=== PATIENT | male | born 1955 | race Caucasian/White ===

== ENCOUNTER 2023-11-14 16:40 | Emergency (ER) | payer OTHER, SELFPAY ==
[2023-11-14 16:48] VITALS: BP 183/70; PULSE 98; RESP 16; TEMP 37.6; O2SAT 94; BMI 29.8
--- NOTE | 2023-11-14 17:04 | W.ED.NAVMDI ---
HPI - Nausea/Vomiting/Diarrhea General: Chief complaint: Nausea/Vomiting/Diarrhea Stated complaint: weakness, abd pain Time Seen by Provider: 11/14/23 17:02 History of Present Illness: 68-year-old male patient comes in today with headache, and stomach discomfort. Patient reports illness since Saturday. Patient reports nausea without vomiting. Patient reports poor appetite, occasional cough, chills and fever. Patient appears mildly unwell but nontoxic. Patient has a history of hypertension, HIV, and chronic kidney disease. Patient had a appendectomy and gallbladder removal. Patient is also has a history of throat cancer. Associated nausea: Yes Associated symtoms: Reports malaise and nausea Review of Systems General: Reports: 10 or more systems reviewed and unremarkable except in HPI and below Const: Reports: fever(s), chills and malaise Resp: Reports: non-productive cough GI: Reports: nausea Physical Exam Const: COMMON NORMALS: alert HENMT: COMMON NORMALS: normocephalic HEAD & SCALP: normocephalic Neck/C-Spine: COMMON NORMALS: full ROM Chest: COMMONS NORMALS: normal inspection of the chest Resp: COMMON NORMALS: normal respiratory effort and clear to auscultation bilaterally AUSCULTATION: clear to auscultation bilaterally Cardio: COMMON NORMALS: regular rate and regular rhythm RATE: regular rate RHYTHM: regular rhythm GI: COMMON NORMALS: Soft to palpation and non-tender PALPATION: Yes Soft to palpation : COMMON NORMALS: Yes no CVA tenderness BLADDER/KIDNEY EXAM: Yes no CVA tenderness Back/Pelvis: COMMON NORMALS: no CVA tenderness and thoracic and lumbar spine normal to inspection Extremity: COMMON NORMALS: no pedal edema Neuro: SENSORIUM/ORIENTATION: Yes alert Skin: COMMON NORMALS: turgor normal GENERAL SKIN EXAM: turgor normal Course Vital Signs: Vital signs: Vital Signs Temperature 99.7 F H 11/14/23 16:48 Pulse Rate 89 11/14/23 18:51 Respiratory Rate 16 11/14/23 16:48 Blood Pressure 198/87 11/14/23 18:51 Pulse Oximetry 95 11/14/23 18:51 Oxygen Delivery Me thod Room Air 11/14/23 16:48 MDM - Nausea/Vomiting/Diarrhea Medical Decision Making 68-year-old male patient comes in today for complaints of feeling unwell, headache, nausea, poor appetite, chills and a fever. Patient appears mildly unwell but nontoxic. Lungs are clear to auscultation. Skin is warm and dry. Vital signs except for elevated blood pressure. Patient is post to be on blood pressure medication but did not take it today due to not feeling well. Differential diagnosis includes viral syndrome, pneumonia, gastroenteritis, constipation, upper respiratory infection. Medical Records Patient comes in for a acute illness that started about 2 days ago. Patient reports feeling poorly and nauseous. Patient reports poor oral intake. Skin is warm and dry. Lungs clear to auscultation. No edema is noted. Chest x-ray was normal. CBC showed a white count of 6000. CMP was normal. CRP was 53. Urinalysis was concentrated at 1.025. No abdominal pain was noted on palpation. Differential diagnosis includes but not limited to viral syndrome, influenza, COVID, urinary tract infection, pneumonia. COVID flu and strep were all negative. The patient probably has a viral syndrome. Patient felt better after 1 L of IV fluids and 4 mg of Zofran. Encourage patient to drink plenty of fluids and a prescription of Zofran was sent to the pharmacy. Patient reported understanding of care plan need for follow-up or return to the ER for worsening symptoms such as increasing shortness of breath, increasing pain or discomfort, or new concerns. Lab Data 11/14/23 17:21 11/14/23 17:21 Radiology Impressions Chest X-Ray 11/14/23 17:11 IMPRESSION: No acute findings. Laboratory Results WBC 6.66 10^3/uL (3.29-11.43) 11/14/23 17: RBC 4.72 10^6/uL (3.85-5.65) 11/14/23 17:21 Hgb 15.60 g/dL (11.27-16.99) 11/14/23 17:21 Hct 44.1 % (37-53) 11/14/23 17:21 MCV 93.4 fl (82-101) 11/14/23 17:21 MCH 33.1 pg (27-33) H 11/14/23 17: MCHC 35.4 g/dL (30-55) 11/14/23 17:21 RDW 13.0 % (12.1-15.1) 11/14/23 17:21 Plt Count 147 10^3/cmm (157-399) L 11/14/23 17:21 MPV 10.2 fL (7.4-10.4) 11/14/23 17:21 Neut % (Auto) 83.3 % 11/14/23 17:21 Lymph % (Auto) 6.6 % 11/14/23 17:21 [place] % (Auto) 9.5 % 11/14/23 17:21 Eos % (Auto) 0.0 % 11/14/23 17:21 Baso % (Auto) 0.3 % 11/14/23 17:21 Neut # (Auto) 5.55 10^3/uL (1.8-7.7) 11/14/23 17:21 Lymph # (Auto) 0.4 10^3/uL (0.8-4.8) L 11/14/23 17:21 Dixon # (Auto) 0.6 10^3/uL (0.2-0.9) 11/14/23 17:21 Eos # (Auto) 0.0 10^3/uL (0.0-0.8) 11/14/23 17:21 Baso # (Auto) 0.0 10^3/uL (0.0-0.1) 11/14/23 17:21 Nucleated RBC % (auto) 0 % 11/14/23 17:21 Nucleated RBCs # 0.0 /100WBC 11/14/23 17:21 Sodium 137 mmol/L (136-145) 11/14/23 17:21 Potassium 3.8 mmol/L (3.5-5.1) 11/14/23 17:21 Chloride 100 mmol/L (98-107) 11/14/23 17:21 Carbon Dioxide 26 mmol/L (22-29) 11/14/23 17:21 Anion Gap 14.8 (5-19) 11/14/23 17:21 BUN 17 mg/dL (8-23) 11/14/23 17:21 Creatinine 1.2 mg/dL (0.7-1.2) 11/14/23 17:21 GFR Calculation 60.2 mL/min (90-130) L 11/14/23 17:21 Glucose 139 mg/dL (65-115) H 11/14/23 17:21 Calculated Osmolality 288 mOsm/kg (285-295) 11/14/23 17:21 Lactic Acid 1.1 mmol/L (0.5-2.2) 11/14/23 17:21 Calcium 8.4 mg/dL (8.5-10.5) L 11/14/23 17:21 Total Bilirubin 2.3 mg/dL (0.15-1.2) H 11/14/23 17:21 AST 21 U/L (0-40) 11/14/23 17:21 ALT 15 U/L (0-41) 11/14/23 17:21 Alkaline Phosphatase 103 U/L (40-130) 11/14/23 17:21 C-Reactive Protein 53.1 mg/L (0.0-4.9) H 11/14/23 17:21 Total Protein 7.4 g/dL (6.6-8.7) 11/14/23 17:21 Albumin 4.3 g/dL (3.5-5.2) 11/14/23 17:21 Globulin 3.1 g/dL (1.3-4.6) 11/14/23 17:21 Urine Color Dark yellow (Yellow) 11/14/23 18:53 Urine Appearance Clear (CLEAR) 11/14/23 18:53 Urine pH 5 (5-7) 11/14/23 18:53 Ur Specific [place] 1.025 (1.005-1.030) 11/14/23 18:53 Urine Protein 1+ (Negative) H 11/14/23 18:53 Urine Glucose (UA) Norm (Normal) 11/14/23 18:53 Urine Ketones Negative (Negative) 11/14/23 18:53 Urine Blood Neg (Negative) 11/14/23 18:53 Urine Nitrate Negative (Negative) 11/14/23 18:53 Urine Bilirubin 1+ (Negative) H 11/14/23 18:53 Urine Urobilinogen 1 mg/dL (Negative) H 11/14/23 18:53 Ur Leukocyte Esterase Negative (Negative) 11/14/23 18:53 Urine RBC 0-4 /hpf (0-2) H 11/14/23 18:53 Urine WBC 0-4 /hpf (0-5) H 11/14/23 18:53 Ur Squamous Epith Cells None /hpf (0-5) 11/14/23 18:53 Amorphous Sediment Not Reportable 11/14/23 18:53 Urine Bacteria None /hpf (NONE) 11/14/23 18:53 Urine Mucus Trace /hpf 11/14/23 18:53 Influenza Type A Ag negative (Negative) 11/14/23 17:33 Influenza Type B Ag negative (Negative) 11/14/23 17:33 SARS-CoV-2 Ag (Rapid) negative (Negative) 11/14/23 17:33 Group A Strep Rapid Negative (Negative) 11/14/23 17:33 All radiology interpretation(s) finalized by discharge Discharge Plan Discharge Patient Disposition: Home Clinical Impression: Flu syndrome, Dehydration Condition: Stable Prescriptions: New ondansetron 4 mg tablet,disintegrating 4 mg PO Q8H PRN (Reason: nausea and vomiting) Qty: 7 0RF Discharge Orders: Discharge ED (Routine); Ordered 11/14/23 Ordered By: Cruz Mayfield Discharge Diet: Usual diet Discharge Activity: Increase activity as tolerated Patient Instructions: Viral Syndrome (ED) Activity Restrictions/Additional Instructions: Use acetaminophen and/or ibuprofen for aches pains and fever. Use ondansetron every 8 hours as needed for nausea. Drink frequent sips of fluids to stay hydrated. Follow-up with primary care for further instructions. Return to ED for new concerns. Coding Level of Care Code ED Network Security Consultant for Orquidea Nugent
--- NOTE | 2023-11-14 17:11 | XRR_ITS ---
PROCEDURE INFORMATION: Exam: XR Chest Exam date and time: 11/14/2023 5:43 PM Age: 68 years old Clinical indication: Cough TECHNIQUE: Imaging protocol: Radiologic exam of the chest. Views: 1 view. COMPARISON: No relevant prior studies available. FINDINGS: Lungs: Unremarkable. No consolidation. Pleural spaces: Unremarkable. No pleural effusion. No pneumothorax. Heart/Mediastinum: Mild cardiomegaly. Bones/joints: Unremarkable. XR/XR chest 1V portable [id number] IMPRESSION: No acute findings.
[2023-11-14 17:36] LABS: Basophils % 0.3 %; Hematocrit 44.1 % (37-53); Lymphocytes # 0.4 10^3/uL (0.8-4.8); Lymphocytes % 6.6 %; Mean Corpuscular HGB Conc 35.4 g/dL (30-55); Mean Corpuscular Hemoglobin 33.1 pg (27-33); Mean Corpuscular Volume 93.4 fl (82-101); Mean Platelet Volume 10.2 fL (7.4-10.4); Monocytes # 0.6 10^3/uL (0.2-0.9); Monocytes % 9.5 %; Neutrophils # 5.55 10^3/uL (1.8-7.7); Neutrophils % 83.3 %; Nucleated Red Blood Cells % 0 %; Platelet Count 147 10^3/cmm (157-399); Red Blood Count 4.72 10^6/uL (3.85-5.65); White Blood Count 6.66 10^3/uL (3.29-11.43)
[2023-11-14] MEDS: sodium chloride 0.9% 1,000 ML 999 ML IV (17:37)
[2023-11-14] MEDS: ondansetron 2 mg/ML SDV 2 mL 4 MG IVP (17:39)
[2023-11-14 17:52] LABS: Alanine Aminotransferase 15 U/L (0-41); Albumin Level 4.3 g/dL (3.5-5.2); Alkaline Phosphatase 103 U/L (40-130); Anion Gap 14.8 (5-19); Aspartate Amino Transferase 21 U/L (0-40); Blood Urea Nitrogen 17 mg/dL (8-23); C Reactive Protein 53.1 mg/L (0.0-4.9); Calcium 8.4 mg/dL (8.5-10.5); Carbon Dioxide 26 mmol/L (22-29); Chloride 100 mmol/L (98-107); Creatinine Clr Calc Pharmacy 72.0633; Globulin 3.1 g/dL (1.3-4.6); Glomerular Filtration Rate 60.2 mL/min (90-130); Glucose 139 mg/dL (65-115); Osmolality Calculated 288 mOsm/kg (285-295); Potassium 3.8 mmol/L (3.5-5.1); Sodium 137 mmol/L (136-145); Total Bilirubin 2.3 mg/dL (0.15-1.2); Total Protein 7.4 g/dL (6.6-8.7)
[2023-11-14 17:53] LABS: Lactic Sepsis W/Reflex 1.1 mmol/L (0.5-2.2)
[2023-11-14 18:18] LABS: Rapid Strep A Test Negative (Negative)
[2023-11-14 18:26] LABS: Influenza A by IFA negative (Negative); Influenza B by IFA negative (Negative); SARS Covid-2 Antigen negative (Negative)
[2023-11-14 18:51] VITALS: BP 198/87; PULSE 89; O2SAT 95
[2023-11-14 19:04] LABS: Add Urine Microscopic? YES; Bilirubin Urine 1+ (Negative); Blood Urine Neg (Negative); Glucose Urine UA Norm (Normal); Ketones Urine Negative (Negative); Leukocyte Esterase Urine Negative (Negative); Nitrate Urine Negative (Negative); Protein Urine 1+ (Negative); Specific Gravity, Urine 1.025 (1.005-1.030); Urine Appearance Clear (CLEAR); Urine Color Dark Yellow (Yellow); Urobilinogen Urine 1 mg/dL (Negative); pH Urine 5 (5-7)
[2023-11-14 19:10] LABS: Add Urine Culture? No; Mucus Urine TRACE /hpf; RBC Urine 0-4 /hpf (0-2); WBC Urine 0-4 /hpf (0-5)
[2023-11-14 19:32] VITALS: BP 170/83; PULSE 89; RESP 16; O2SAT 94
== END 2023-11-14 19:33 | disposition home or self-care (01) ==
PROVIDERS: Emergency Provider Nurse Practitioner Family
DX: J11.1 Influenza due to unidentified influenza virus with other respiratory manifestations (principal); E86.0 Dehydration; Z11.52 Encounter for screening for COVID-19
CPT/HCPCS: 36415; 71045; 80053; 81001; 83605; 85025; 86140; 87040; 87081; 87426; 87804; 87880; 96361; 96374; 99284; J2405; J7030

== ENCOUNTER 2024-07-20 16:02 | Observation (INO) | payer OTHER, SELFPAY ==
[2024-07-20] VITALS (8 sets, daily range): BP systolic 124–178; BP diastolic 80–96; PULSE 63–80; RESP 16–20; TEMP 36.6; O2SAT 92–96; BMI 29.8
--- NOTE | 2024-07-20 16:22 | CTR_ITS ---
PROCEDURE INFORMATION: Exam: CT Head Without Contrast Exam date and time: 07/20/2024 4:40 PM Age: 69 years old Clinical indication: Weakness, extremity; Left TECHNIQUE: Imaging protocol: Computed tomography of the head without contrast. Radiation optimization: All CT scans at this facility use at least one of these dose optimization techniques: automated exposure control; mA and/or kV adjustment per patient size (includes targeted exams where dose is matched to clinical indication); or iterative reconstruction. COMPARISON: No relevant prior studies available. RADIATION DOSE METRICS: Total DLP (mGy-cm): 1045.38 FINDINGS: Brain: No evidence of intra-axial or extra-axial hemorrhage. No mass effect or midline shift. There is an approximately 1 cm focus of hypoattenuation in the right perirolandic region, which appears centered in the right postcentral gyrus concerning for acute-subacute infarct (for example, image 40 of series 7). Basilar cisterns are patent. Cerebral ventricles: No hydrocephalus. Paranasal sinuses: The visualized paranasal sinuses are well aerated. Mastoid air cells: The visualized mastoids and middle ears are clear. Bones: Calvarium is intact. No evidence of acute fracture. Soft tissues: No gross soft tissue abnormality. CT/CT head wo con* [id number] IMPRESSION: 1. Findings suspicious for acute-subacute infarct in the right perirolandic region. Correlation with MRI is recommended. The findings were verbally communicated by telephone with Dr. ESCUDERO at 5:08 PM PROCESSING SPEC on 07/20/2024.
--- NOTE | 2024-07-20 16:22 | XRR_ITS ---
PROCEDURE INFORMATION: Exam: XR Chest Exam date and time: 07/20/2024 4:29 PM Age: 69 years old Clinical indication: Other: Weakness TECHNIQUE: Imaging protocol: Radiologic exam of the chest. Views: 1 view. COMPARISON: CR XR chest 1V portable [id number] 11/14/2023 5:43 PM FINDINGS: Lungs: No focal consolidation. Left basilar hazy opacities compatible with atelectasis or developing infection in the proper clinical setting. Pleural spaces: No evidence of pneumothorax. No evidence of pleural effusion. Heart/Mediastinum: Cardiomediastinal silhouette is within normal limits. Bones/joints: No evidence of acute osseous abnormality. XR/XR chest 1V portable [id number] IMPRESSION: 1. Left basilar hazy opacities compatible with atelectasis or developing infection in the proper clinical setting.
--- NOTE | 2024-07-20 16:24 | ECG_ITS ---
[facility] 2024[facility]20 Pat Name: Jin Hutton Department: Room: Gender: Male Welder Boilermaker: : 1955 Requested By: Regina Wade Order Number: [id number] Tracie MD: Alcon Corado M.D. Measurements Intervals Kress Rate: 71 P: -35 PA: 139 QRS: 38 QRSD: 85 T: 76 QT: 370 QTc: 403 Interpretive Statements SINUS RHYTHM No previous ECG available for comparison Electronically Signed On 07-20-2024 16:49:02 TRAFFIC ENGINEERING DIRECTOR by Alcon Corado M.D. [email or web address]
--- NOTE | 2024-07-20 16:27 | ED_ITS ---
HPI - Neuro Symptoms/Deficit 2 General: Chief Complaint: Neuro Symptoms/Deficit Stated Complaint: strokelikesymptoms (2xdays ago) Time Seen by Provider: 07/20/24 16:08 Source: patient Mode of arrival: ambulatory Limitations: no limitations History of Present Illness: 69-year-old male states that on Saturday h e started having some numbness he states to his left side of his face states he had some numbness as well to his left arm and legs. He states that he also had some dizziness difficulty walking was started on Saturday as well. He states that is resolved states he still having some numbness down his left arm he is able to ambulate he has no slurred speech. Associated symptoms: Reports headache(s); Deny chest pain, nausea or vomiting Related Data Previous Rx's Medication Instructions Recorded ondansetron 4 mg disintegrating 4 mg PO Q8H PRN nausea and 11/14/23 tablet vomiting #7 tabs Allergies Allergy/AdvReac Type Severity Reaction Status Date / Time No Known Allergies Allergy Verified 07/20/24 16:18 Review of Systems 2 Const: Denies: fever(s), chills, body aches or change in appetite ENMT: Denies: throat pain or dental pain Card: Denies: chest pain Resp: Denies: dyspnea GI: Denies: abdominal pain, nausea, vomiting or diarrhea Musc: Denies: neck pain or back pain Skin/Breast: Denies: rash Neuro: Reports: headache(s) NIH stroke score 2 NIHSS: Level Of Consciousness - 1a: 0 Level Of Consciousness Questions - 1b: Both Correct Level Of Consciousness Commands - 1c: Both Correct Best Gaze - 2: Normal Visual [place] - 3: No Visual Loss Facial Palsy - 4: N ormal Motor Arm Right - 5: No Drift Motor Arm Left - 5: No Drift Motor Leg Right - 6: No Drift Motor Leg Left - 6: No Drift Limb Ataxia - 7: A bsent Sensory - 8: Mild To Moderate Loss Best Language - 9: No Aphasia Dysarthia - 10: Normal Extinction And Inattention - 11: 0 Score: Total Score: 1 Physical Exam 2 Const: COMMON NORMALS: no acute distress, patient oriented x3 and healthy appearing HENMT: COMMON NORMALS: normocephalic and atraumatic HEAD & SCALP: n ormocephalic and atraumatic Eye: COMMON NORMALS: Equal, round and reactive pupils present and EOMs intact bilaterally PUPIL: Yes Equal, round and reactive pupils present Neck/C-Spine: COMMON NORMALS: full ROM and supple Chest: COMMONS NORMALS: normal inspection of the chest Resp: COMMON NORMALS: normal respiratory effort, No retractions, No use of accessory muscles and clear to auscultation bilaterally AUSCULTATION: clear to auscultation bilaterally Cardio: COMMON NORMALS: regular rate, regular rhythm and No murmurs present (Cardio) RATE: regular rate RHYTHM: regular rhythm Extremity: COMMON NORMALS: normal to inspection and full ROM Neuro: COMMON NORMALS: patient oriented x3, moves all extremities and no focal motor deficits CRANIAL NERVES: Yes CN normal except as noted SPEECH: s peech normal GAIT: Yes Normal gait present MOTOR EXAM: 5/5 motor strength present throughout Psych: COMMON NORMALS: mental status grossly normal, Normal thought process present and cooperative THOUGHT PROCESS: Normal thought process present Skin: COMMON NORMALS: no rashes or lesions noted and no wounds GENERAL SKIN EXAM: no rashes or lesions noted Course 2 Vital Signs: Vital signs: Vital Signs Temperature 97.9 F 07/20/24 16:14 Pulse Rate 65 07/20/24 17:26 Respiratory Rate 20 H 07/20/24 17:26 Blood Pressure 160/91 07/20/24 17:26 Pulse Oximetry 95 07/20/24 17:26 Oxygen Delivery Me thod Room Air 07/20/24 17:26 MDM - Neuro Symptoms/Deficit Medical Decision Making Patient presents here with numbness down his left arm along with some dizziness that started on Saturday head CT shows a possible stroke. Patient's symptoms began Saturday he is no candidate for lytics or thrombectomy as his onset has been greater than 24 hours. I have him an NIH of 1 here as the symptoms have improved I spoke to the hospitalist will admit at this time for further workup Medical Records I reviewed the patient's medical records. Lab Data I reviewed the patient's lab results. 07/20/24 16:29 07/20/24 16:29 Radiology Impressions Chest X-Ray 07/20/24 16:22 IMPRESSION: 1. Left basilar hazy opacities compatible with atelectasis or developing infection in the proper clinical setting. Head CT 07/20/24 16:22 IMPRESSION: 1. Findings suspicious for acute-subacute infarct in the right perirolandic region. Correlation with MRI is recommended. The findings were verbally communicated by telephone with Dr. ESCUDERO at 5:08 PM FOLDER MACHINE OPERATOR on 07/20/2024. Laboratory Results WBC 5.58 10^3/uL (3.29-11.43) 07/20/24 16: RBC 4.95 10^6/uL (3.85-5.65) 07/20/24 16:29 Hgb 16.30 g/dL (11.27-16.99) 07/20/24 16:29 Hct 46.6 % (37-53) 07/20/24 16: MCV 94.1 fl (82-101) 07/20/24 16: MCH 32.9 pg (27-33) 07/20/24 16: MCHC 35.0 g/dL (30-55) 07/20/24 16: RDW 13.6 % (12.1-15.1) 07/20/24 16:29 Plt Count 171 10^3/cmm (157-399) 07/20/24 16: MPV 10.1 fL (7.4-10.4) 07/20/24 16: Neut % (Auto) 67.6 % 07/20/24 16: Lymph % (Auto) 20.4 % 07/20/24 16:29 [place] % (Auto) 9.0 % 07/20/24 16: Eos % (Auto) 2.2 % 07/20/24 16:29 Baso % (Auto) 0.4 % 07/20/24 16:29 Neut # (Auto) 3.78 10^3/uL (1.8-7.7) 07/20/24 16:29 Lymph # (Auto) 1.1 10^3/uL (0.8-4.8) 07/20/24 16:29 [place] # (Auto) 0.5 10^3/uL (0.2-0.9) 07/20/24 16:29 Eos # (Auto) 0.1 10^3/uL (0.0-0.8) 07/20/24 16:29 Baso # (Auto) 0.0 10^3/uL (0.0-0.1) 07/20/24 16:29 Nucleated RBC % (auto) 0 % 07/20/24 16:29 Nucleated RBCs # 0.0 /100WBC 07/20/24 16:29 Sodium 138 mmol/L (136-145) 07/20/24 16:29 Potassium 4.1 mmol/L (3.5-5.1) 07/20/24 16:29 Chloride 101 mmol/L (98-107) 07/20/24 16:29 Carbon Dioxide 26 mmol/L (22-29) 07/20/24 16:29 Anion Gap 15.1 (5-19) 07/20/24 16:29 BUN 17 mg/dL (8-23) 07/20/24 16:29 Creatinine 1.2 mg/dL (0.7-1.2) 07/20/24 16:29 GFR Calculation 60.0 mL/min (90-130) L 07/20/24 16:29 Glucose 103 mg/dL (65-115) 07/20/24 16:29 Calculated Osmolality 288 mOsm/kg (285-295) 07/20/24 16:29 Calcium 9.7 mg/dL (8.5-10.5) 07/20/24 16:29 Magnesium 2.4 mg/dL (1.7-2.3) H 07/20/24 16:29 Total Bilirubin 2.6 mg/dL (0.15-1.2) H 07/20/24 16:29 AST 27 U/L (0-40) 07/20/24 16:29 ALT 22 U/L (0-41) 07/20/24 16:29 Alkaline Phosphatase 79 U/L (40-130) 07/20/24 16:29 Total Protein 7.9 g/dL (6.6-8.7) 07/20/24 16:29 Albumin 4.8 g/dL (3.5-5.2) 07/20/24 16:29 Globulin 3.1 g/dL (1.3-4.6) 07/20/24 16:29 All radiology interpretation(s) finalized by discharge EKG Data EKG 1: I personally reviewed and interpreted this EKG as follows: EKG interpretation date: 07/20/24 EKG interpretation time: 16:34 Interpretation: nsr hr [address] or t wave abnormalities qr 85 qtc 392 Discharge Plan Discharge Patient Disposition: Admitted As Inpatient Clinical Impression: Cerebrovascular accident Condition: Stable Coding Level of Care Code ED Advanced Seal Delivery System for Orquidea Nugent
[2024-07-20 16:35] LABS: Basophils % 0.4 %; Eosinophils # 0.1 10^3/uL (0.0-0.8); Eosinophils % 2.2 %; Hematocrit 46.6 % (37-53); Lymphocytes # 1.1 10^3/uL (0.8-4.8); Lymphocytes % 20.4 %; Mean Corpuscular Hemoglobin 32.9 pg (27-33); Mean Corpuscular Volume 94.1 fl (82-101); Mean Platelet Volume 10.1 fL (7.4-10.4); Monocytes # 0.5 10^3/uL (0.2-0.9); Neutrophils # 3.78 10^3/uL (1.8-7.7); Neutrophils % 67.6 %; Nucleated Red Blood Cells % 0 %; Platelet Count 171 10^3/cmm (157-399); Red Blood Count 4.95 10^6/uL (3.85-5.65); Red Cell Distribution Width 13.6 % (12.1-15.1); White Blood Count 5.58 10^3/uL (3.29-11.43)
--- NOTE | 2024-07-20 16:40 | PC.PHAR ---
[facility] 07/20/24 4:40pm
[2024-07-20 16:52] LABS: Alanine Aminotransferase 22 U/L (0-41); Albumin Level 4.8 g/dL (3.5-5.2); Alkaline Phosphatase 79 U/L (40-130); Anion Gap 15.1 (5-19); Aspartate Amino Transferase 27 U/L (0-40); Blood Urea Nitrogen 17 mg/dL (8-23); Calcium 9.7 mg/dL (8.5-10.5); Carbon Dioxide 26 mmol/L (22-29); Chloride 101 mmol/L (98-107); Creatinine Clr Calc Pharmacy 71.0625; Globulin 3.1 g/dL (1.3-4.6); Glucose 103 mg/dL (65-115); Magnesium 2.4 mg/dL (1.7-2.3); Osmolality Calculated 288 mOsm/kg (285-295); Potassium 4.1 mmol/L (3.5-5.1); Sodium 138 mmol/L (136-145); Total Bilirubin 2.6 mg/dL (0.15-1.2); Total Protein 7.9 g/dL (6.6-8.7)
--- NOTE | 2024-07-20 17:02 | CTR_ITS ---
PROCEDURE INFORMATION: Exam: CT Abdomen And Pelvis With Contrast Exam date and time: 07/20/2024 5:41 PM Age: 69 years old Clinical indication: Jaundiced TECHNIQUE: Imaging protocol: Computed tomography of the abdomen and pelvis with contrast. Radiation optimization: All CT scans at this facility use at least one of these dose optimization techniques: automated exposure control; mA and/or kV adjustment per patient size (includes targeted exams where dose is matched to clinical indication); or iterative reconstruction. Contrast material: OMNI 350; Contrast volume: 100 ml; Contrast route: INTRAVENOUS (IV); COMPARISON: CR XR chest 1V portable [id number] 07/20/2024 4:29 PM RADIATION DOSE METRICS: Total DLP (mGy-cm): 847.12 FINDINGS: Lungs: Subsegmental bibasilar atelectasis. The visualized lung bases are otherwise grossly clear. Diaphragm: No evidence of diaphragmatic defect. Liver: Hepatic steatosis. No evidence of focal hepatic lesion. Gallbladder and biliary ducts: Scribe GB tube Pancreas: Unremarkable. Spleen: Unremarkable. Adrenal glands: Unremarkable. Kidneys and ureters: No renal parenchymal abnormality. No hydronephrosis or ureteral stone. Stomach and bowel: Colonic diverticulosis without evidence of acute diverticulitis. No bowel obstruction or perienteric inflammatory changes. Appendix: The appendix is not visualized, however there are no findings to suggest appendicitis. Intraperitoneal space: No evidence of free air or fluid collection. Vasculature: No aneurysmal dilatation or dissection of the abdominal aorta. The celiac trunk, SMA and [place] are grossly patent. No evidence of IVC thrombus. The portal vein, SMV and splenic veins are grossly patent. Lymph nodes: No adenopathy. Urinary bladder: Grossly unremarkable. Reproductive: Enlarged prostate measuring 5 cm. Consider correlation with serum laboratory findings and outpatient urologic evaluation. Bones/joints: No evidence of acute fracture or aggressive osseous lesion. Moderate-severe osteoarthritis of both hips. Soft tissues: No evidence of fluid collection or hematoma in the superficial soft tissues. Postsurgical changes of the lower abdominal wall compatible with prior hernia repair. CT/CT abdomen pelvis w con* [id number] IMPRESSION: 1. No evidence of acute abnormality in the abdomen or pelvis.
[2024-07-20] MEDS: aspirin 81 mg Chew Tablet 324 MG PO (17:26)
[2024-07-20] MEDS: iohexol 350 mg/mL 500 mL Btl (per mL) IV (17:51)
[2024-07-20] MEDS: clopidogrel 75 mg Tablet PO (18:35)
[2024-07-20 18:41] LABS: Chol HDL Ratio 3.89 mg/dL (1.0-5.00); Cholesterol 210 mg/dL (0-200); HDL Cholesterol 54 mg/dL (60-100); LDL Cholesterol Calculated 132 mg/dL (50-129); Thyroid Stimulating Hormone 2.96 uIU/mL (0.27-4.20); Triglycerides 122 mg/dL (0-150); VLDL Cholestrol Calculation 24 mg/dL (0-30); Vitamin B12 885 pg/mL (232-1245)
--- NOTE | 2024-07-20 19:08 | P.HP_ITS ---
Providers/Chief Complaint 2 Admitting Physician: Wanda Tellez MD Primary Care Provider: Nelia Brown MD Chief Complaint: stroke like symptoms (2xdays ago) History of Present Illness Jin Hutton is a 69 year old male with chronic history of throat cancer in remission, chronic hoarseness of voice, HIV on Biktary, follows up in [place], hypertension takes losartan and amlodipine, endorsing chronic history of abnormal bilirubin, history of cholecystectomy, coming in with chief complaint of left-sided numbness and weakness. Patient is stating that he was watching television on Saturday with his around 7 PM when he start experiencing dizziness associated with numbness of the left side of his face and arm, he he asked his to bring him aspirin, he took couple doses, he felt a bit relieved went to bed, next day he was experiencing similar symptoms all day, took another dose of couple of aspirins, because of persistent symptoms his asked him to get evaluated on Saturday, patient is stating that he has not noticed any slurring of speech word-finding difficulty. Stating that he has chronic left hand injury and sometimes feel numb that is why he did not pay much attention. His hoarseness of voice is related to throat cancer currently in remission. NIH score 1 for slight weakness of left arm, awake and alert hypertensive currently on room air CT head consistent with subacute CVA CT abdomen pelvis unremarkable Bilirubin noted Requested hepatitis panel B12 level TSH along echo bubble study and had MRI Patient is stating that right now he is only feeling numbness around left neck area otherwise he feels he is back to his baseline Review of Systems 2 Const: Denies: fever(s) Eyes: Denies: change in vision ENMT: Denies: throat pain Card: Denies: chest pain Resp: Denies: dyspnea Musc: Reports: muscle weakness Neuro: Reports: weakness in extremities and dizziness Medications/Allergies Home Medications Medication Instructions Recorded Confirmed Last Taken Type ondansetron 4 mg disintegrating 4 mg PO Q8H PRN nausea and 11/14/23 Unknown Rx tablet vomiting #7 tabs Allergies Allergy/AdvReac Type Severity Reaction Status Date / Time No Known Allergies Allergy Verified 07/20/24 16:18 PFSH Acute 2 PFSH: Medical History Hypertension HIV (human immunodeficiency virus infection) Surgical History History of appendectomy Status post cholecystectomy Vitals/I&O/Wt Last Vital Signs Temp 97.9 F 07/20/24 16:14 Pulse 67 07/20/24 18:44 Resp 17 07/20/24 18:44 BP 178/86 07/20/24 18:44 Pulse Ox 94 07/20/24 18:44 O2 Del Method Room Air 07/20/24 18:44 Weight last 48 hrs Weight 99.79 kg Physical Exam 2 Narrative: Patient is awake and alert NIH 1 for mild left-sided arm weakness GCS 15 No slurring of speech Hoarseness of voice is chronic Awake and alert AO x 4 S1, S2 Hypertensive Currently on room air Euvolemic Data 07/20/24 16:29 07/20/24 16:29 A&P Assessment and plan (1) Cerebrovascular accident: Plan Subacute CVA Had MRI requested in the morning Check on telemetry for the abnormal rhythm Check B12, TSH, hemoglobin A1c and lipid panel PT OT ST I would allow patient to have cardiac diet for now I do not appreciate any slurring of speech however he has chronic hoarseness of voice related to throat cancer in the past, Currently in remission I would also request CTA head and neck Add atorvastatin 80 along aspirin and Plavix Permissive hypertension If blood pressure goes above 200/120 can use IV antibiotic regimen as needed basis Patient takes losartan 50 mg and amlodipine 5 mg at home, it can be optimized for better blood pressure control at the time of discharge Anticipating discharge within 48 hours DVT prophylaxis: Lovenox Cardiac diet Patient is a non-smoker, does not drink alcohol History of HIV: Continue Biktarvy Patient endorsing chronic history of abnormal bilirubin, requested hepatitis panel, patient stating that since childhood with stress he always gets jaundice, he is not sure if he has a diagnosis of Gilbert syndrome? CT abdomen pelvis unremarkable, patient is stating that he has had cholecystectomy in the past Attestations 2 Medical Necessity Statement*: Anticipating discharge within 48 hours Diagnoses Cerebrovascular accident I63.9
--- NOTE | 2024-07-20 19:08 | USCV_ITS ---
Jin Hutton Age: 69 Gender: M : 1955 Exam Date: 07/20/2024 19:56 Ordering Phys: Analia Blanc MD Technologist: HOLLY Exam Location: [facility] [place] Indication: left hemiparesia BP: 160 / 91 HR: 63 Rhythm: Sinus Technical Quality: Adequate MEASUREMENTS (Male / Female) Normal Values 2D ECHO LV Diastolic Diameter PLAX 3.9 cm 4.2 - 5.9 / 3.9 - 5.3 cm IVS Diastolic Thickness 1.9 cm 0.6 - 1.0 / 0.6 - 0.9 cm IVS Systolic Thickness 2.5 cm LVPW Diastolic Thickness 1.6 cm 0.6 - 1.0 / 0.6 - 0.9 cm LVPW Systolic Thickness 1.6 cm LVOT Diameter 2.1 cm LV Ejection Fraction 2D Teich 58.6 % LV Ejection Fraction MOD 4C 60.1 % LV Ejection Fraction MOD 2C 66.7 % LV Ejection Fraction 2C AL 67.6 % LA Diameter 4.1 cm Aorta at Sinotubular Diameter 2.6 cm IVC Diameter 2.3 cm M-MODE LA Ao Ratio MM 1.3 AV Cusp Separation MM 1.9 cm DOPPLER AV Peak Velocity 108.0 cm/s LVOT Peak Velocity 82.0 cm/s AV Area Cont Eq vti 3.3 cm squared AV Area Cont Eq pk 2.7 cm squared MV Peak Velocity 93.0 cm/s MV Area PHT 4.1 cm squared Mitral E to A Ratio 0.8 TV Peak E Velocity 37.0 cm/s PV Peak Velocity 130.0 cm/s FINDINGS Left Ventricle Normal LV size with slightly diminished ejection fraction of 50%.mild left ventricular hypertrophy. Grade I/IV diastolic dysfunction (abnormal relaxation filling pattern), normal to mildly elevated filling pressures. Right Ventricle The right ventricle is normal in size and function. Right Atrium The right atrium is normal in size. Left Atrium Mildly increased left atrial size. Mitral Valve Trace mitral valve regurgitation. Aortic Valve The leaflets appears to be thickened. Morphology could not be delineated well. Tricuspid Valve No gross abnormalities noted Pulmonic Valve Trace pulmonary valve regurgitation. Pericardium Normal pericardium without effusion. Aorta Normal ascending aorta dimension. IVC The inferior vena cava appears normal. CONCLUSIONS Normal LV size with slightly diminished ejection fraction of 50%.mild left ventricular hypertrophy. Grade I/IV diastolic dysfunction (abnormal relaxation filling pattern), normal to mildly elevated filling . Mildly increased left atrial size. Trace mitral valve regurgitation. The aortic leaflets appears to be thickened. Morphology could not be delineated well. Trace pulmonary valve regurgitation. There is no pericardial effusion. There are no intracardiac masses. No similar previous studies are available for comparison Dr Darlene Arvizu MD [facility] (Electronically Signed) Final Date: 21 July 2024 01:21 S
[2024-07-20] MEDS: lisinopril 5 mg Tablet PO (19:48)
[2024-07-20 20:00] LABS: Vitamin B12 845 pg/mL (232-1245)
[2024-07-20 20:54] LABS: Hepatitis A Antibody IgM Non-Reactive (Nonreactive); Hepatitis B Core AB, Total Non-Reactive (Nonreactive); Hepatitis B Surface AB 205.4 (11.5-1000); Hepatitis B Surface Antigen Non-Reactive (Nonreactive); Hepatitis C Virus Antibody Non-Reactive (Nonreactive)
[2024-07-20] MEDS: enoxaparin 40 mg/0.4 mL Syringe SUBCUT (21:03)
[2024-07-20] MEDS: atorvastatin 40 mg Tablet 80 MG PO (21:03)
[2024-07-20 21:15] LABS: Estmated Average Glucose 126
[2024-07-21] VITALS: BP 145/66; PULSE 65; RESP 17; TEMP 36.8; O2SAT 93
[2024-07-21 04:00] VITALS: BP 143/77; PULSE 71; RESP 18; TEMP 36.8; O2SAT 94
[2024-07-21 04:57] LABS: Basophils % 0.4 %; Eosinophils # 0.1 10^3/uL (0.0-0.8); Eosinophils % 2.2 %; Hematocrit 44.9 % (37-53); Lymphocytes # 1.1 10^3/uL (0.8-4.8); Lymphocytes % 19.9 %; Mean Corpuscular HGB Conc 35.2 g/dL (30-55); Mean Corpuscular Hemoglobin 32.1 pg (27-33); Mean Corpuscular Volume 91.3 fl (82-101); Mean Platelet Volume 10.4 fL (7.4-10.4); Monocytes # 0.5 10^3/uL (0.2-0.9); Monocytes % 8.7 %; Neutrophils # 3.69 10^3/uL (1.8-7.7); Neutrophils % 68.4 %; Nucleated Red Blood Cells % 0 %; Platelet Count 162 10^3/cmm (157-399); Red Blood Count 4.92 10^6/uL (3.85-5.65); Red Cell Distribution Width 13.2 % (12.1-15.1); White Blood Count 5.39 10^3/uL (3.29-11.43)
[2024-07-21 05:31] LABS: Alanine Aminotransferase 21 U/L (0-41); Albumin Level 4.2 g/dL (3.5-5.2); Alkaline Phosphatase 72 U/L (40-130); Anion Gap 14.7 (5-19); Aspartate Amino Transferase 23 U/L (0-40); Blood Urea Nitrogen 16 mg/dL (8-23); Calcium 8.9 mg/dL (8.5-10.5); Carbon Dioxide 26 mmol/L (22-29); Chloride 105 mmol/L (98-107); Creatinine Clr Calc Pharmacy 71.0776; Globulin 2.6 g/dL (1.3-4.6); Glucose 107 mg/dL (65-115); Magnesium 2.2 mg/dL (1.7-2.3); Osmolality Calculated 296 mOsm/kg (285-295); Potassium 3.7 mmol/L (3.5-5.1); Sodium 142 mmol/L (136-145); Total Bilirubin 3.3 mg/dL (0.15-1.2); Total Protein 6.8 g/dL (6.6-8.7)
--- NOTE | 2024-07-21 08:00 | CTR_ITS ---
PROCEDURE INFORMATION: Exam: CTA Head With Contrast, Arteriography Exam date and time: 07/21/2024 9:01 AM Age: 69 years old Clinical indication: Condition or disease; Other: CVA; Patient HX: HX of throat cancer TECHNIQUE: Imaging protocol: Computed tomographic angiography of the head with contrast. Exam focused on the arteries. 3D rendering (Not supervised by radiologist): MIP and/or 3D reconstructed images were created by the technologist. Radiation optimization: All CT scans at this facility use at least one of these dose optimization techniques: automated exposure control; mA and/or kV adjustment per patient size (includes targeted exams where dose is matched to clinical indication); or iterative reconstruction. Contrast material: OMNI 350; Contrast volume: 100 ml; Contrast route: INTRAVENOUS (IV); COMPARISON: MR head wo con* [id number] 07/21/2024 7:39 AM RADIATION DOSE METRICS: Total DLP (mGy-cm): 1035.57 FINDINGS: ANTERIOR CIRCULATION: Right internal carotid artery: Intracranial segment is patent with no significant stenosis. No aneurysm. Right middle cerebral artery: No occlusion or significant stenosis. No aneurysm. Right anterior cerebral artery: No occlusion or significant stenosis. No aneurysm. Left internal carotid artery: Intracranial segment is patent with no significant stenosis. No aneurysm. Left middle cerebral artery: No occlusion or significant stenosis. No aneurysm. Left anterior cerebral artery: No occlusion or significant stenosis. No aneurysm. POSTERIOR CIRCULATION: Right vertebral artery: No occlusion or significant stenosis. No aneurysm. Left vertebral artery: No occlusion or significant stenosis. No aneurysm. Basilar artery: No occlusion or significant stenosis. No aneurysm. Right posterior cerebral artery: No occlusion or significant stenosis. No aneurysm. Left posterior cerebral artery: No occlusion or significant stenosis. No aneurysm. Brain: No definite mass, mass effect, or midline shift. The small acute/subacute infarcts seen by MR diffusion-weighted imaging are not visible by CT. Cerebral ventricles: No ventriculomegaly. Paranasal sinuses: Mucous retention cysts in the right maxillary sinus. Bones/joints: Unremarkable. No acute fracture. Soft tissues: Unremarkable. PROCEDURE INFORMATION: Exam: CTA Neck With Contrast Exam date and time: 07/21/2024 9:01 AM Age: 69 years old Clinical indication: Condition or disease; Other: CVA; Patient HX: HX of throat cancer TECHNIQUE: Imaging protocol: Computed tomographic angiography of the neck with contrast. Exam focused on the cervical segments of the vasculature. 3D rendering (Not supervised by radiologist): MIP and/or 3D reconstructed images were created by the technologist. Radiation optimization: All CT scans at this facility use at least one of these dose optimization techniques: automated exposure control; mA and/or kV adjustment per patient size (includes targeted exams where dose is matched to clinical indication); or iterative reconstruction. Contrast material: OMNI 350; Contrast volume: 100 ml; Contrast route: INTRAVENOUS (IV); COMPARISON: MR head tejal verma* [id number] 07/21/2024 7:39 AM RADIATION DOSE METRICS: Total DLP (mGy-cm): 1035.57 FINDINGS: Right common carotid artery: No stenosis. No dissection or occlusion. Right internal carotid artery: No stenosis of the extracranial segment. No dissection or occlusion. Right external carotid artery: No occlusion or stenosis of the origin. Left common carotid artery: No stenosis. No dissection or occlusion. Left internal carotid artery: No stenosis of the extracranial segment. No dissection or occlusion. Left external carotid artery: No occlusion or stenosis of the origin. Right vertebral artery: No stenosis. No dissection or occlusion. Left vertebral artery: No stenosis. No dissection or occlusion. Soft tissues: Normal. No significant soft tissue swelling. Bones/joints: No acute fracture. CT/CT angio headneck* [id number] IMPRESSION: No hemodynamically significant stenosis or large vessel occlusion visualized in the arteries of the head. IMPRESSION: No hemodynamically significant stenosis or occlusion. REFERENCES: NASCET CRITERIA. The degree of stenosis in the cervical segment of the internal carotid artery is based on NASCET criteria. Normal is no stenosis. Mild is less than 50% stenosis. Moderate is 50-69% stenosis. Severe is 70% to 99% stenosis. Total occlusion is no detectable patent lumen.
[2024-07-21 08:53] VITALS: BP 143/77
[2024-07-21] MEDS: losartan 50 mg Tablet PO (08:53)
[2024-07-21] MEDS: clopidogrel 75 mg Tablet PO (08:53)
[2024-07-21] MEDS: aspirin 81 mg EC Tablet PO (08:53)
[2024-07-21] MEDS: amlodipine 10 mg Tablet PO (08:53)
[2024-07-21] MEDS: iohexol 350 mg/mL 500 mL Btl (per mL) IV (09:05)
--- NOTE | 2024-07-21 11:47 | P.DS_ITS ---
Discharge Providers Date of Admission: 07/20/24 18:40 Date of Discharge: July 21, 2024 Attending Provider at Admission: Wanda Tellez MD Attending Provider at Discharge: Wanda Tellez MD Primary Care Provider: Nelia Brown MD Diagnoses at Discharge Discharge Diagnosis (1) Cerebrovascular accident: Status: Acute Reason for Visit Reason for Visit: stroke like symptoms (2xdays ago) Discharge Data Studies Completed and Pending Completed Studies During Hospitalization Category Date Time Status CT abdomen pelvis w con* [id number] Stat Cat Scan 07/20/24 17:[address] head wo con* [id number] Stat Cat Scan 07/20/24 16:22 Completed CTA head neck [CT angio headneck* [id number]] Routine Cat Scan 07/21/24 08:00 Completed XR chest 1V portable [id number] Stat Exams 07/20/24 16:22 Completed MR head wo con* [id number] Routine MRI 07/21/24 18:01 Completed CV. echo w/w bubble cont [id number] Routine Ultrasound 07/20/24 19:08 Completed Radiology Impressions Chest X-Ray 07/20/24 16:22 IMPRESSION: 1. Left basilar hazy opacities compatible with atelectasis or developing infection in the proper clinical setting. Head CT 07/20/24 16:22 IMPRESSION: 1. Findings suspicious for acute-subacute infarct in the right perirolandic region. Correlation with MRI is recommended. The findings were verbally communicated by telephone with Dr. ESCUDERO at 5:08 PM [employer] on 07/20/2024. Abdomen/Pelvis CT 07/20/24 17:02 IMPRESSION: 1. No evidence of acute abnormality in the abdomen or pelvis. Head/Neck CTA 07/21/24 08:00 IMPRESSION: No hemodynamically significant stenosis or large vessel occlusion visualized in the arteries of the head. IMPRESSION: No hemodynamically significant stenosis or occlusion. REFERENCES: NASCET CRITERIA. The degree of stenosis in the cervical segment of the internal carotid artery is based on NASCET criteria. Normal is no stenosis. Mild is less than 50% stenosis. Moderate is 50-69% stenosis. Severe is 70% to 99% stenosis. Total occlusion is no detectable patent lumen. Head MRI 07/21/24 18:01 IMPRESSION: 1. Small amount of patchy acute ischemia involving the RIGHT frontoparietal junction at the central sulcus. Few additional tiny punctate foci in the RIGHT posterior lara radiata and RIGHT frontal lobe compatible with acute ischemia. 2. No mass effect or midline shift. Tiny amount of edema at the RIGHT frontal parietal infarct. 3. Mild small vessel changes. Moderate parenchymal volume loss. Notified Wanda Tellez MD at 07/21/2024 9:36 AM. Laboratory Results WBC 5.39 10^3/uL (3.29-11.43) 07/21/24 04:29 RBC 4.92 10^6/uL (3.85-5.65) 07/21/24 04:29 Hgb 15.80 g/dL (11.27-16.99) 07/21/24 04:29 Hct 44.9 % (37-53) 07/21/24 04:29 MCV 91.3 fl (82-101) 07/21/24 04:29 MCH 32.1 pg (27-33) 07/21/24 04:29 MCHC 35.2 g/dL (30-55) 07/21/24 04:29 RDW 13.2 % (12.1-15.1) 07/21/24 04:29 Plt Count 162 10^3/cmm (157-399) 07/21/24 04:29 MPV 10.4 fL (7.4-10.4) 07/21/24 04:29 Neut % (Auto) 68.4 % 07/21/24 04:29 Lymph % (Auto) 19.9 % 07/21/24 04:29 Benton % (Auto) 8.7 % 07/21/24 04:29 Eos % (Auto) 2.2 % 07/21/24 04:29 Baso % (Auto) 0.4 % 07/21/24 04:29 Neut # (Auto) 3.69 10^3/uL (1.8-7.7) 07/21/24 04:29 Lymph # (Auto) 1.1 10^3/uL (0.8-4.8) 07/21/24 04:29 Benton # (Auto) 0.5 10^3/uL (0.2-0.9) 07/21/24 04:29 Eos # (Auto) 0.1 10^3/uL (0.0-0.8) 07/21/24 04:29 Baso # (Auto) 0.0 10^3/uL (0.0-0.1) 07/21/24 04:29 Nucleated RBC % (auto) 0 % 07/21/24 04:29 Nucleated RBCs # 0.0 /100WBC 07/21/24 04:29 Sodium 142 mmol/L (136-145) 07/21/24 04:29 Potassium 3.7 mmol/L (3.5-5.1) 07/21/24 04:29 Chloride 105 mmol/L (98-107) 07/21/24 04:29 Carbon Dioxide 26 mmol/L (22-29) 07/21/24 04:29 Anion Gap 14.7 (5-19) 07/21/24 04:29 BUN 16 mg/dL (8-23) 07/21/24 04:29 Creatinine 1.2 mg/dL (0.7-1.2) 07/21/24 04:29 GFR Calculation 60.0 mL/min (90-130) L 07/21/24 04:29 Glucose 107 mg/dL (65-115) 07/21/24 04:29 Estimat Average Glucose 126 07/20/24 16:29 Hemoglobin A1c 6.0 % (4.0-6.0) 07/20/24 16:29 Calculated Osmolality 296 mOsm/kg (285-295) H 07/21/24 04:29 Calcium 8.9 mg/dL (8.5-10.5) 07/21/24 04:29 Magnesium 2.2 mg/dL (1.7-2.3) 07/21/24 04:29 Total Bilirubin 3.3 mg/dL (0.15-1.2) H 07/21/24 04:29 AST 23 U/L (0-40) 07/21/24 04:29 ALT 21 U/L (0-41) 07/21/24 04:29 Alkaline Phosphatase 72 U/L (40-130) 07/21/24 04:29 Total Protein 6.8 g/dL (6.6-8.7) 07/21/24 04:29 Albumin 4.2 g/dL (3.5-5.2) 07/21/24 04:29 Globulin 2.6 g/dL (1.3-4.6) 07/21/24 04:29 Triglycerides 122 mg/dL (0-150) 07/20/24 16:29 Cholesterol 210 mg/dL (0-200) H 07/20/24 16:29 LDL Cholesterol, Calc 132 mg/dL (50-129) H 07/20/24 16:29 Total VLDL Cholesterol 24 mg/dL (0-30) 07/20/24 16:29 HDL Cholesterol 54 mg/dL (60-100) L 07/20/24 16:29 Cholesterol/HDL Ratio 3.89 mg/dL (1.0-5.00) 07/20/24 16:29 Vitamin B12 845 pg/mL (232-1245) 07/20/24 16:29 Vitamin B12 885 pg/mL (232-1245) 07/20/24 16:29 TSH 2.96 uIU/mL (0.27-4.20) 07/20/24 16:29 Hepatitis A IgM Ab Non-reactive (Nonreactive) 07/20/24 19:38 Hep Bs Antigen Non-reactive (Nonreactive) 07/20/24 19:38 Hep Bs Antibody 205.4 (11.5-1000) 07/20/24 19:38 Hep B Core Total Ab Non-reactive (Nonreactive) 07/20/24 19:38 Hepatitis C Antibody Non-reactive (Nonreactive) 07/20/24 19:38 Vitals Last Vital Signs Temp 98.3 F 07/21/24 04:00 Pulse 71 07/21/24 04:00 Resp 18 07/21/24 04:00 BP 143/77 07/21/24 08:53 Pulse Ox 94 07/21/24 04:00 O2 Del Method Room Air 07/21/24 04:00 Discharge Plan Discharge Patient Disposition: Home Condition: Stable Prescriptions: New amlodipine 10 mg Tablet 10 mg PO DAILY Qty: 30 0RF aspirin 81 mg Tablet,Delayed Release (Dr/Ec) 81 mg PO DAILY Qty: 30 0RF atorvastatin 40 mg Tablet 80 mg PO BEDTIME Qty: 30 0RF clopidogrel 75 mg Tablet 75 mg PO DAILY Qty: 30 0RF losartan 50 mg Tablet 50 mg PO DAILY Qty: 30 0RF Continued amlodipine 5 mg tablet 5 mg PO DAILY Biktarvy 50-200-25 mg tablet 1 tab PO DAILY Discontinued rosuvastatin 10 mg tablet 10 mg PO DAILY losartan-hydrochlorothiazide 100-12.5 mg tablet 1 tab PO DAILY Discharge Orders: Discharge Order (Routine); Ordered 07/21/24 Ordered By: Wanda Tellez Other Ambulatory Orders: DME: Shower Chair (Order) Location: None Selected Ordered By: Analia Blanc MCT/Event Monitor 21 Days (Routine) Timeframe: 1 Day Facility: [facility] - Location: Radiology Ordered By: Wanda Tellez Referrals: Nelia Brown MD [Primary Care Provider] - 4-7 days Vickie Mccauley MD [Physician] - 1 week Discharge Diet: Cardiac Discharge Activity: As per PT/OT instructions Patient Instructions: Opioid Safety Coding Level of Care Code Acute Code for [facility] Fwd Diagnoses Cerebrovascular accident I63.9
--- NOTE | 2024-07-21 11:56 | P.DS_ITS ---
Discharge Providers Date of Admission: 07/20/24 18:40 Date of Discharge: July 21, 2024 Attending Provider at Admission: Wanda Tellez MD Attending Provider at Discharge: Wanda Tellez MD Primary Care Provider: Nelia Brown MD Diagnoses at Discharge Discharge Diagnosis (1) Cerebrovascular accident: Status: Acute Reason for Visit Reason for Visit: stroke like symptoms (2xdays ago) Hospital Course Hospital Course Jin Hutton is a 69 year old male with chronic history of throat cancer in remission, chronic hoarseness of voice, HIV on Biktarvy, follows up in [facility], hypertension takes losartan and amlodipine, endorsing chronic history of abnormal bilirubin, history of cholecystectomy, coming in with chief complaint of left-sided numbness and weakness. Patient is stating that he was watching television on Saturday with his around 7 PM when he start experiencing dizziness associated with numbness of the left side of his face and arm, he he asked his to bring him aspirin, he took couple doses, he felt a bit relieved went to bed, next day he was experiencing similar symptoms all day, took another dose of couple of aspirins, because of persistent symptoms his asked him to get evaluated on Saturday, patient is stating that he has not noticed any slurring of speech word-finding difficulty. Stating that he has chronic left hand injury and sometimes feel numb that is why he did not pay much attention. His hoarseness of voice is related to throat cancer currently in remission. Patient had a CT head done which showed a subacute CVA. He does have a history of HIV. Biktarvy to be continued at this time. ? MRI brain did confirm a stroke 1. Small amount of patchy acute ischemia involving the RIGHT frontoparietal junction at the central sulcus. Few additional tiny punctate foci in the RIGHT posterior lara radiata and RIGHT frontal lobe compatible with acute ischemia. 2. No mass effect or midline shift. Tiny amount of edema at the RIGHT frontal parietal infarct. 3. Mild small vessel changes. Moderate parenchymal volume loss. - Patient was placed on amlodipine aspirin atorvastatin Plavix losartan for 30 days. Patient to follow-up with neurology at discharge. Shower chair was o rdered for patient as per his request. 21-day event monitor was set up. Echo reviewed. Physical Exam Narrative: Patient is awake and alert NIH 1 for mild left-sided arm weakness GCS 15 No slurring of speech Hoarseness of voice is chronic Awake and alert AO x 4 S1, S2 Hypertensive Currently on room air Euvolemic Discharge Data Studies Completed and Pending Completed Studies During Hospitalization Category Date Time Status CT abdomen pelvis w con* [id number] Stat Cat Scan 07/20/24 17:[address] head wo con* [id number] Stat Cat Scan 07/20/24 16:22 Completed CTA head neck [CT angio headneck* [id number]] Routine Cat Scan 07/21/24 08:00 Completed XR chest 1V portable [id number] Stat Exams 07/20/24 16:22 Completed MR head wo con* [id number] Routine MRI 07/21/24 18:01 Completed CV. echo w/w bubble cont [id number] Routine Ultrasound 07/20/24 19:08 Completed Radiology Impressions Chest X-Ray 07/20/24 16:22 IMPRESSION: 1. Left basilar hazy opacities compatible with atelectasis or developing infection in the proper clinical setting. Head CT 07/20/24 16:22 IMPRESSION: 1. Findings suspicious for acute-subacute infarct in the right perirolandic region. Correlation with MRI is recommended. The findings were verbally communicated by telephone with Dr. ESCUDERO at 5:08 PM [facility]NER on 07/20/2024. Abdomen/Pelvis CT 07/20/24 17:02 IMPRESSION: 1. No evidence of acute abnormality in the abdomen or pelvis. Head/Neck CTA 07/21/24 08:00 IMPRESSION: No hemodynamically significant stenosis or large vessel occlusion visualized in the arteries of the head. IMPRESSION: No hemodynamically significant stenosis or occlusion. REFERENCES: NASCET CRITERIA. The degree of stenosis in the cervical segment of the internal carotid artery is based on NASCET criteria. Normal is no stenosis. Mild is less than 50% stenosis. Moderate is 50-69% stenosis. Severe is 70% to 99% stenosis. Total occlusion is no detectable patent lumen. Head MRI 07/21/24 18:01 IMPRESSION: 1. Small amount of patchy acute ischemia involving the RIGHT frontoparietal junction at the central sulcus. Few additional tiny punctate foci in the RIGHT posterior lara radiata and RIGHT frontal lobe compatible with acute ischemia. 2. No mass effect or midline shift. Tiny amount of edema at the RIGHT frontal parietal infarct. 3. Mild small vessel changes. Moderate parenchymal volume loss. Notified Wanda Tellez MD at 07/21/2024 9:36 AM. Laboratory Results WBC 5.39 10^3/uL (3.29-11.43) 07/21/24 04:29 RBC 4.92 10^6/uL (3.85-5.65) 07/21/24 04:29 Hgb 15.80 g/dL (11.27-16.99) 07/21/24 04:29 Hct 44.9 % (37-53) 07/21/24 04:29 MCV 91.3 fl (82-101) 07/21/24 04:29 MCH 32.1 pg (27-33) 07/21/24 04:29 MCHC 35.2 g/dL (30-55) 07/21/24 04:29 RDW 13.2 % (12.1-15.1) 07/21/24 04:29 Plt Count 162 10^3/cmm (157-399) 07/21/24 04:29 MPV 10.4 fL (7.4-10.4) 07/21/24 04:29 Neut % (Auto) 68.4 % 07/21/24 04:29 Lymph % (Auto) 19.9 % 07/21/24 04:29 [place] % (Auto) 8.7 % 07/21/24 04:29 Eos % (Auto) 2.2 % 07/21/24 04:29 Baso % (Auto) 0.4 % 07/21/24 04:29 Neut # (Auto) 3.69 10^3/uL (1.8-7.7) 07/21/24 04:29 Lymph # (Auto) 1.1 10^3/uL (0.8-4.8) 07/21/24 04:29 [place] # (Auto) 0.5 10^3/uL (0.2-0.9) 07/21/24 04:29 Eos # (Auto) 0.1 10^3/uL (0.0-0.8) 07/21/24 04:29 Baso # (Auto) 0.0 10^3/uL (0.0-0.1) 07/21/24 04:29 Nucleated RBC % (auto) 0 % 07/21/24 04:29 Nucleated RBCs # 0.0 /100WBC 07/21/24 04:29 Sodium 142 mmol/L (136-145) 07/21/24 04:29 Potassium 3.7 mmol/L (3.5-5.1) 07/21/24 04:29 Chloride 105 mmol/L (98-107) 07/21/24 04:29 Carbon Dioxide 26 mmol/L (22-29) 07/21/24 04:29 Anion Gap 14.7 (5-19) 07/21/24 04:29 BUN 16 mg/dL (8-23) 07/21/24 04:29 Creatinine 1.2 mg/dL (0.7-1.2) 07/21/24 04:29 GFR Calculation 60.0 mL/min (90-130) L 07/21/24 04:29 Glucose 107 mg/dL (65-115) 07/21/24 04:29 Estimat Average Glucose 126 07/20/24 16:29 Hemoglobin A1c 6.0 % (4.0-6.0) 07/20/24 16:29 Calculated Osmolality 296 mOsm/kg (285-295) H 07/21/24 04:29 Calcium 8.9 mg/dL (8.5-10.5) 07/21/24 04:29 Magnesium 2.2 mg/dL (1.7-2.3) 07/21/24 04:29 Total Bilirubin 3.3 mg/dL (0.15-1.2) H 07/21/24 04:29 AST 23 U/L (0-40) 07/21/24 04:29 ALT 21 U/L (0-41) 07/21/24 04:29 Alkaline Phosphatase 72 U/L (40-130) 07/21/24 04:29 Total Protein 6.8 g/dL (6.6-8.7) 07/21/24 04:29 Albumin 4.2 g/dL (3.5-5.2) 07/21/24 04:29 Globulin 2.6 g/dL (1.3-4.6) 07/21/24 04:29 Triglycerides 122 mg/dL (0-150) 07/20/24 16:29 Cholesterol 210 mg/dL (0-200) H 07/20/24 16:29 LDL Cholesterol, Calc 132 mg/dL (50-129) H 07/20/24 16:29 Total VLDL Cholesterol 24 mg/dL (0-30) 07/20/24 16:29 HDL Cholesterol 54 mg/dL (60-100) L 07/20/24 16:29 Cholesterol/HDL Ratio 3.89 mg/dL (1.0-5.00) 07/20/24 16:29 Vitamin B12 845 pg/mL (232-1245) 07/20/24 16:29 Vitamin B12 885 pg/mL (232-1245) 07/20/24 16:29 TSH 2.96 uIU/mL (0.27-4.20) 07/20/24 16:29 Hepatitis A IgM Ab Non-reactive (Nonreactive) 07/20/24 19:38 Hep Bs Antigen Non-reactive (Nonreactive) 07/20/24 19:38 Hep Bs Antibody 205.4 (11.5-1000) 07/20/24 19:38 Hep B Core Total Ab Non-reactive (Nonreactive) 07/20/24 19:38 Hepatitis C Antibody Non-reactive (Nonreactive) 07/20/24 19:38 Vitals Last Vital Signs Temp 98.3 F 07/21/24 04:00 Pulse 71 07/21/24 04:00 Resp 18 07/21/24 04:00 BP 143/77 07/21/24 08:53 Pulse Ox 94 07/21/24 04:00 O2 Del Method Room Air 07/21/24 04:00 Discharge Plan Discharge Patient Disposition: Home Condition: Stable Prescriptions: New losartan 50 mg Tablet 50 mg PO DAILY Qty: 30 0RF atorvastatin 40 mg Tablet 80 mg PO BEDTIME Qty: 30 0RF clopidogrel 75 mg Tablet 75 mg PO DAILY Qty: 30 0RF aspirin 81 mg Tablet,Delayed Release (Dr/Ec) 81 mg PO DAILY Qty: 30 0RF amlodipine 10 mg Tablet 10 mg PO DAILY Qty: 30 0RF Continued amlodipine 5 mg tablet 5 mg PO DAILY Biktarvy 50-200-25 mg tablet 1 tab PO DAILY Discontinued rosuvastatin 10 mg tablet 10 mg PO DAILY losartan-hydrochlorothiazide 100-12.5 mg tablet 1 tab PO DAILY Discharge Orders: Discharge Order (Routine); Ordered 07/21/24 Ordered By: Wanda Tellez Other Ambulatory Orders: DME: Shower Chair (Order) Location: None Selected Ordered By: Analia Blanc MCT/Event Monitor 21 Days (Routine) Timeframe: 1 Day Facility: [facility] - Location: Radiology Ordered By: Wanda Tellez Referrals: Nelia Brown MD [Primary Care Provider] - 4-7 days (We have notified your physician's clinic of the need for a follow-up appointment to be scheduled. If you have not heard from them within the next 2 business days, please call them directly. ) Vickie Mccauley MD [Physician] - 1 week (We have notified your physician's clinic of the need for a follow-up appointment to be scheduled. If you have not heard from them within the next 2 business days, please call them directly. ) Discharge Diet: Cardiac Discharge Activity: As per PT/OT instructions Patient Instructions: Aspirin (By mouth), Amlodipine (By mouth), Losartan (By mouth), Atorvastatin (By mouth), Clopidogrel (By mouth), Ischemic Stroke (DC), Self Care Measures After a Stroke (DC), Opioid Safety, Stroke Stoplight Discharge Attestations Time Spent in Discharge Care*: greater than 30 min Quality Metrics Clinical Quality Measures [ No reported AMI, CVA or VTE this stay] Coding Level of Care Code Acute Code for [facility] Fwd Diagnoses Cerebrovascular accident I63.9
[2024-07-21 12:00] VITALS: BP 139/79; PULSE 71; RESP 15; TEMP 36.9; O2SAT 97
[2024-07-21 14:24] VITALS: BP 139/79; PULSE 71; RESP 15; TEMP 36.9; O2SAT 97
--- NOTE | 2024-07-21 18:01 | MR_ITS ---
WS: [id number] MRI HEAD WITHOUT CONTRAST TECHNIQUE: Sagittal T1, T2 axial, T2 axial FLAIR, axial and coronal T1 images, axial susceptibility w eighted imaging, axial diffusion weighted images, and coronal T2 images were obtained. CLINICAL INFORMATION: stroke COMPARISON: CT 07/20/2024 FINDINGS: Few patchy foci of restricted diffusion at the RIGHT frontal parietal junction compatible with acute ischemia. A few tiny punctate foci restricted diffusion involving the RIGHT frontal lobe and posterio r lara radiata. No mass effect or midline shift. Tiny amount of edema associated with the RIGHT fro ntal parietal infarct near the central sulcus Mild small vessel changes. Moderate parenchymal volume loss. Normal posterior fossa. Normal vascular flow voids at the skull base. No extra-axial fluid collections. No evidence of mass or mass effect. M ucosal thickening in the paranasal sinuses. Retention cyst RIGHT greater than LEFT maxillary sinuses. Mastoid air cells are well aerated. Normal posterior nasopharynx. Tiny chronic focus of hemosiderin in the RIGHT parasagittal frontal lobe. MR/MR head wo con* [id number] IMPRESSION: 1. Small amount of patchy acute ischemia involving the RIGHT frontoparietal ju nction at the central sulcus. Few additional tiny punctate foci in the RIGHT po sterior lara radiata and RIGHT frontal lobe compatible with acute ischemia. 2. No mass effect or midline shift. Tiny amount of edema at the RIGHT frontal parietal infarct. 3. Mild small vessel changes. Moderate parenchymal volume loss. Notified Wanda Tellez MD at 07/21/2024 9:36 AM.
--- NOTE | 2024-07-28 14:07 | PC.NURSE ---
accounts payable coordinator follow up phone call competed at 1403. Patient had PCP follow up today. [facility] follow [facility]. [facility]. Patient got his heart monitor yesterday.
== END 2024-07-21 14:27 | disposition home or self-care (01) ==
LOC: ER 17:14 → MEDSURG 19:40
PROVIDERS: Internal Medicine; Admitting Provider Internal Medicine; Emergency Provider Emergency Medicine; PCP Family Medicine; Visit Provider Internal Medicine
DX: I63.9 Cerebral infarction, unspecified (principal); R29.701 NIHSS score 1; Z85.89 Personal history of malignant neoplasm of other organs and systems; B20 Human immunodeficiency virus [HIV] disease; I10 Essential (primary) hypertension
CPT/HCPCS: 36415; 70450; 70496; 70498; 70551; 71045; 74177; 80053; 80061; 82607; 83036; 83735; 84443; 85025; 86705; 86706; 86709; 86803; 87340; 92523; 92610; 93005; 96372; 97110; 97161; 97166; 99285; C8929; G0378; J1650

== ENCOUNTER → 2024-09-16 14:19 | Outpatient (BNVA) | payer OTHER, SELFPAY | PROVIDERS: PCP Family Medicine; Visit Provider Internal Medicine | DX: I10 Essential (primary) hypertension (principal); Z86.73 Personal history of transient ischemic attack (TIA), and cerebral infarction without residual deficits; Z87.891 Personal history of nicotine dependence | CPT/HCPCS: 99203 ==

== ENCOUNTER 2025-01-08 14:59 | Outpatient (CLI) | payer OTHER, SELFPAY ==
--- NOTE | 2025-01-08 15:06 | USCV_ITS ---
Brennen Jin Age: 69 Gender: M : 1955 Exam Date: 01/08/2025 15:17 Ordering Phys: Nelia Brown MD Technologist: Jay Philippe Exam Location: [facility] [place] Indication: cva Risk Factors: Previous Vascular Surgery: Right Brachial BP: / Left Brachial BP: / Right Left Velocity (cm/s) Spectral Plaque Velocity (cm/s) Spectral Plaque Syst/Diast Broadening Syst/Diast Broadening 99.50/ 18.90 Prox CCA 133.80/ 23.20 91.00/ 19.40 Mid CCA 103.90/ 21.30 70.90/ 14.60 Distal CCA 82.40 / 21.00 84.50/ 21.40 Prox ICA 100.20/ 34.90 55.90/ 16.70 Mid ICA 95.60 / 34.60 54.10/ 18.60 Distal ICA 89.50 / 29.90 1.20 ICA/CCA 1.20 Antegrade Vertebral Antegrade 52.50/ 16.40 cm/s 47.90/ 11.90 cm/s Tri Subclavian Tri 110.5 88.40 0 CONCLUSIONS Right ICA stenosis <50%. Mild atheromatous plaque right carotid bulb/ICA. Left ICA stenosis <50%. Mild atheromatous plaque left carotid bulb/ICA. Normal antegrade Doppler flow noted in the right vertebral artery. Normal antegrade Doppler flow noted in the left vertebral artery. Tonny Watkins MD (Electronically Signed) Final Date: 08 January 2025 16:34 S
== END 2025-01-08 15:00 | disposition home or self-care (01) ==
LOC: RAD 15:00
PROVIDERS: PCP Family Medicine; Visit Provider Family Medicine
DX: I63.12 Cerebral infarction due to embolism of basilar artery (principal)
CPT/HCPCS: 93880

== ENCOUNTER 2025-02-25 07:59 | Outpatient (CLI) | payer OTHER, SELFPAY ==
--- NOTE | 2025-02-25 08:09 | CT_ITS ---
WS: [id number] CT ABDOMEN WITH CONTRAST HISTORY: ELEVATED BILIRUBIN Contiguous single phase 5 mm axial imaging performed to the abdomen. Oral contrast has been provided. Coronal and sagittal reformats are submitted. All CT scans at [facility] use at least one of these dose optimization techniques: automated exposure control; mA and/or kV adjustment per patient size (includes targeted exams where dose is matched to clinical indication); or iterative reconstruction. IV CONTRAST: Omnipaque 350; 100 mL IV. Oral contrast: Yes. DLP: 467.73 mGy.cm COMPARISON: 07/20/2024 Lower thorax: Lung bases are clear. Heart is normal size. No hiatal hernia. Liver/biliary system: Normal size with no intrahepatic dilatation. Gallbladder: Prior cholecystectomy. No common bile duct dilatation. Pancreas: Normal size pancreas and pancreatic duct. No adjacent inflammation. Spleen: Normal size spleen. No mass or infarct. Adrenal glands: Normal. Right kidney: Normal size kidney. Cortical cyst superior pole 8 mm. Additional stable low-attenuation lesion lower pole RIGHT renal cortex. Nonobstructing 2 mm calcification lower pole. No obstruction. Left kidney: Normal. Aorta: Mild atherosclerosis with no aneurysm. Lymphadenopathy: None. Free fluid: None. GI tract: As visualized through the abdomen no obstruction. Stomach is distended with air. There are few diverticula noted in the splenic flexure. Abdominal wall: Unremarkable abdominal wall. No hernia. Visualized osseous structures: Unremarkable. CT/CT abdomen w con* [id number] IMPRESSION: 1. Prior cholecystectomy. No hepatobiliary duct dilatation. 2. RIGHT renal cysts. No hydronephrosis. 3. Mild atherosclerosis aorta. 4. No acute abdomen findings.
[2025-02-25] MEDS: iohexol 350 mg/mL 500 mL Btl (per mL) IV (08:39)
[2025-02-25] MEDS: iohexol 350 mg/mL 500 mL Btl (per mL) PO (08:40)
== END 2025-02-25 08:00 | disposition home or self-care (01) ==
LOC: RAD 08:00
PROVIDERS: PCP Family Medicine; Visit Provider Family Medicine
DX: E80.7 Disorder of bilirubin metabolism, unspecified (principal); N28.1 Cyst of kidney, acquired; Z90.49 Acquired absence of other specified parts of digestive tract
CPT/HCPCS: 74160

== ENCOUNTER → 2025-06-16 10:05 | Outpatient (BNVA) | payer OTHER, SELFPAY | PROVIDERS: PCP Family Medicine; Visit Provider Internal Medicine | DX: I10 Essential (primary) hypertension (principal); Z79.82 Long term (current) use of aspirin; Z86.73 Personal history of transient ischemic attack (TIA), and cerebral infarction without residual deficits; Z87.891 Personal history of nicotine dependence | CPT/HCPCS: 99214 ==